=== PATIENT | female | born 1995 | race African-American/Black ===

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

== ENCOUNTER 2017-07-26 13:10 | Emergency (ER) | payer MEDICAID ==
[~2017-07-26] VITALS: Ht 157.5 cm; Wt 63.5 kg
[~2017-07-26 13:10] MED LIST changes: +IBUP1TAB7 PO; +MAGICPED SWISH-SPIT; -PREN1CAP30 PO; -TERC20CR PV
[2017-07-26 13:15] VITALS: BP 124/74; PULSE 109; RESP 14; TEMP 100.4; O2SAT 97
[2017-07-26] MEDS ORDERED: IBUP1TAB7 PO (14:03)
[2017-07-26] MEDS ORDERED: PROM6.256 PO (14:03)
--- NOTE | 2017-07-26 14:12 | PD ---
HPI . Flu Chief Complaint: Cold / Flu Symptoms Time Seen by Provider: 13:45 Travel History International Travel<30 days: No Contact w/Intl Traveler<30days: No Traveled to known affect area: No History of Present Illness HPI Patient presents with a 4 day history of flulike symptoms. She states that a family member has recently been diagnosed with the flu. She complains of fever , myalgias, cough, headache and vomiting. Symptoms have been constant for the last 4 days. No modifying factors. PFSH Past Medical History ADHD: No Asthma: Yes Autoimmune Disease: No Blood Disorders: No Anxiety: Yes Depression: No Cancer: No Cardiovascular Problems: No Developmental Delay: No Diabetes: No Diminished Hearing: No Gastrointestinal Disorders: No Genitourinary: No Musculoskeletal: No Neurologic: No Psychiatric: No Reproductive: No Respiratory: Yes Immunizations Current: Yes Migraines: No Seizures: No Sickle Cell Disease: No Thyroid Disease: No Ulcer: No ?: Not : 1 Past Surgical History Other Surgery: No Social History Alcohol Use: No Tobacco Use: Yes (1 CIG DAY) Substance Use: No (DENIES, HX MARIJUANA DAILY) Allergies-Medications (Allergen,Severity, Reaction): Coded Allergies: vancomycin (Unverified Allergy, Severe, SEVERE ITCHING HEAD TO TOE, ) PT IS UNAWARE OF THIS ALLERGY Reported Meds & Prescriptions Reported Meds & Active Scripts Active Promethazine-Codeine Liq 6.25-10 Mg/5 Ml Syrp 10 Ml PO Q6H PRN Ibuprofen 800 Mg Tab 800 Mg PO Q8H PRN Magic Mouthwash Pediatric/Adult Liq (Lidocaine/Diphenhydr/Alum/Mg/Simeth) 60 Ml Susp 5 Ml SWISH-SPIT Q3HR PRN Each 5mL contains: Diphenydramine 4.5mg, Viscous Lidocaine 2% 10mg, Maalox Advanced Regular Strength 2.7ml Review of Systems Except as stated in HPI: all other systems reviewed are Neg General / Constitutional: Positive: Fever, Chills HENT: Positive: Headaches Respiratory: Positive: Cough Gastrointestinal: Positive: Nausea, Vomiting, Diarrhea Musculoskeletal: Positive: Myalgias Physical Exam Narrative GENERAL: Awake and alert and in no acute distress. SKIN: warm/dry. Normal color and turgor. HEAD: Normocephalic. Atraumatic. EYES: Pupils equal and round. No scleral icterus. No injection or drainage. ENT: No nasal bleeding or discharge. Mucous membranes pink and moist. Oropharynx has no significant erythema, exudate. NECK: Trachea midline. Full range of motion without pain.. No cervical lymphadenopathy. CARDIOVASCULAR: Regular rate and rhythm. Heart sounds are normal. RESPIRATORY: No accessory muscle use. Clear to auscultation. Breath sounds equal bilaterally. GASTROINTESTINAL: Abdomen soft. Nontender. Bowel sounds present. Nondistended. MUSCULOSKELETAL: No obvious deformities. NEUROLOGICAL: Awake and alert. No obvious cranial nerve deficits. Motor grossly within normal limits. Normal speech. PSYCHIATRIC: Appropriate mood and affect; insight and judgment normal. Data Data Last Documented VS Vital Signs Date Time Temp Pulse Resp B/P (MAP) Pulse Ox O2 Delivery O2 Flow Rate FiO2 07/26/17 13:15 100.4 109 14 124/74 (91) 97 Orders Orders Ed Discharge Order (07/26/17 14:03) [facility] Medical Decision Making Medical Screen Exam Complete: Yes Emergency Medical Condition: Yes Differential Diagnosis Differential diagnosis of fever includes but is not limited to viral illness, strep throat, otitis media, pneumonia, sepsis, UTI Narrative Course She presents with a four-day history of flulike symptoms. She has had a positive exposure to the polio. She is outside of the window for treatment with Tamiflu. She will be discharged home with instructions to drink plenty of fluids. I have given her prescriptions for Motrin for fever and myalgias and Phenergan With Codeine for cough. Diagnosis Primary Impression: Influenza Patient Instructions: General Instructions, Influenza (ED) Departure Forms: Tests/Procedures Scripts Promethazine-Codeine Liq (Promethazine-Codeine Liq) 6.25-10 Mg/5 Ml Syrp 10 ML PO Q6H Y for COUGH AND/OR COLD SYMPTOMS, #120 ML 0 Refills Prov: Radha Yang MD 07/26/17 Ibuprofen (Ibuprofen) 800 Mg Tab 800 MG PO Q8H Y for Pain/Inflammation, #60 TAB 0 Refills Prov: Radha Yang MD 07/26/17 Disposition: 01 DISCHARGE HOME Condition: Stable Radha Yang MD Jul 26, 2017 14:12
== END 2017-07-26 14:39 | disposition home or self-care (01) ==
LOC: NEPD 13:10
DX: J11.1 Influenza due to unidentified influenza virus with other respiratory manifestations (principal); F17.210 Nicotine dependence, cigarettes, uncomplicated
CPT/HCPCS: 99283